=== PATIENT | female | born 1965 | race Caucasian/White ===

== ENCOUNTER 2018-03-21 13:05 | Inpatient (IN) | payer OTHER ==
[2018-03-21 13:49] LABS: ANION GAP 11 (8-16); BLOOD UREA NITROGEN 11 mg/dl (7-20); CALCIUM 9.1 mg/dl (8.4-10.2); CARBON DIOXIDE 22 mmol/L (21-31); CHLORIDE 111 mmol/L (97-110); CREATININE 0.61 mg/dl (0.44-1.00); GLUCOSE 97 mg/dl (70-220); SODIUM 140 mmol/L (135-144)
[2018-03-21] MEDS: ONDANSETRON (ODT) 4 MG TAB ODT ×2 (13:52→14:00)
[2018-03-21 14:05] LABS: TROPONIN-I 0.543 ng/ml (0.000-0.120)
[2018-03-21] MEDS: ASPIRIN 81 MG TAB PO (14:22)
[2018-03-21] MEDS ORDERED: ONDANSETRON 4 MG INJ IV ×2 (15:30→16:00)
[2018-03-21] MEDS ORDERED: ACETAMINOPHEN 325 MG TAB PO ×2 (15:30→16:00)
[2018-03-21] MEDS ORDERED: HYDROCODONE/APAP (5/325) TAB PO (16:00)
[2018-03-21] MEDS ORDERED: NACL 0.9% 3 ML SYG IV (16:00)
[2018-03-21 16:40] LABS: CHOL/HDL RATIO 5.5 RATIO; HDL CHOLESTEROL 36 mg/dl (37-92); LDL CHOLESTEROL,CALCULATED 146 mg/dl; TRIGLYCERIDES 94 mg/dl (0-149)
[2018-03-21 16:40] LABS: CHOLESTEROL 201 mg/dl (100-200)
[2018-03-21 16:59] LABS: FREE T4 (FREE THYROXINE) 1.37 ng/dl (0.64-1.79)
[2018-03-21 17:19] LABS: HEMOGLOBIN A1C 5.7 % (0-5.9)
[2018-03-21] MEDS: LORAZEPAM 0.5 MG TAB PO (17:34)
[2018-03-21 19:50] LABS: CREATINE KINASE 109 IU/L (23-200)
[2018-03-21 20:03] LABS: CK INDEX 2.8
[2018-03-21 20:06] LABS: TROPONIN-I 0.994 ng/ml (0.000-0.120)
[2018-03-21] MEDS: morphine 2 MG INJ IV (21:33)
[2018-03-21] MEDS: SOD CHLORIDE 0.9% 1,000 ML IV (23:20)
[2018-03-21] MEDS: ENOXAPARIN 80 MG/0.8 ML SYG SC (23:29)
[2018-03-22] MEDS: ASPIRIN (EC) 81 MG TAB PO (08:18)
[2018-03-22] MEDS: ENOXAPARIN 80 MG/0.8 ML SYG SC (08:19)
[2018-03-22 09:30] LABS: ADD MAN DIFF? NO
[2018-03-22 09:44] LABS: BASOPHILS % 0.2 % (0.0-2.0); EOSINOPHILS % 0.1 % (0.0-7.0); HEMATOCRIT 40.3 % (37.0-47.0); HEMOGLOBIN 13.6 g/dl (12.0-16.0); LYMPHOCYTES # 2.5 10^3/ul (0.8-2.9); LYMPHOCYTES % 13.3 % (15.0-51.0); MEAN CORPUSCULAR HEMOGLOBIN 30.4 pg (29.0-33.0); MEAN CORPUSCULAR HGB CONC 33.7 g/dl (32.0-37.0); MEAN PLATELET VOLUME 10.8 fl (7.4-10.4); MONOCYTES % 5.3 % (0.0-11.0); NEUTROPHIL # 15.1 10^3/ul (1.6-7.5); NEUTROPHILS % 80.3 % (39.0-77.0); PLATELET COUNT 251 10^3/UL (140-415); RED BLOOD COUNT 4.48 10^6/ul (4.20-5.40); RED CELL DISTRIBUTION WIDTH 12.9 % (11.5-14.5)
[2018-03-22 09:44] LABS: WHITE BLOOD COUNT 18.8 10^3/ul (4.8-10.8)
[2018-03-22 09:54] LABS: CREATINE KINASE 62 IU/L (23-200)
[2018-03-22 09:57] LABS: ALANINE AMINOTRANSFERASE 30 IU/L (13-69); ALBUMIN 3.4 g/dl (3.3-4.9); ALBUMIN/GLOBULIN RATIO 1.54; ALKALINE PHOSPHATASE 38 IU/L (42-121); ANION GAP 8 (8-16); ASPARTATE AMINO TRANSFERASE 16 IU/L (15-46); BILIRUBIN,INDIRECT 0.5 mg/dl (0-1.1); BILIRUBIN,TOTAL 0.5 mg/dl (0.2-1.3); BLOOD UREA NITROGEN 14 mg/dl (7-20); CARBON DIOXIDE 24 mmol/L (21-31); CHLORIDE 114 mmol/L (97-110); CREATININE 0.57 mg/dl (0.44-1.00); GLUCOSE 91 mg/dl (70-220); POTASSIUM 3.8 mmol/L (3.5-5.1); SODIUM 142 mmol/L (135-144); TOTAL PROTEIN 5.6 g/dl (6.1-8.1)
[2018-03-22 09:59] LABS: INR 1.01; PROTIME 13.4 Sec (11.9-14.9)
[2018-03-22 10:00] LABS: PARTIAL THROMBOPLASTIN TIME 43.4 Sec (25.0-35.0)
[2018-03-22 10:08] LABS: CK INDEX 2.6
[2018-03-22 10:09] LABS: TROPONIN-I 0.277 ng/ml (0.000-0.120)
[2018-03-22] MEDS ORDERED: HEPARIN 1000 UNITS/ML 10 ML INJ (10:23)
[2018-03-22] MEDS ORDERED: MIDAZOLAM 1 MG/ML 2 ML INJ (10:23)
[2018-03-22] MEDS ORDERED: FENTAnyl 50 MCG/ML VIAL (10:23)
[2018-03-22] MEDS ORDERED: VERAPAMIL 5 MG INJ (10:23)
[2018-03-22 10:24] LABS: MAGNESIUM 1.9 mg/dl (1.7-2.5)
[2018-03-22] MEDS ORDERED: LIDOCAINE 1% (MDV) 10 ML INJ (10:24)
[2018-03-22] MEDS ORDERED: NITROGLYCERIN (IC) 100 MCG/ML INJ (10:24)
[2018-03-22] MEDS: SOD CHLORIDE 0.9% 1,000 ML IV (14:51)
[2018-03-22] MEDS: ATORVASTATIN 20 MG TAB PO (15:36)
== END 2018-03-22 16:05 | disposition home or self-care (01) | DRG 281 ==
LOC: E/R 13:05 → MS4 15:18
PROC: 4A023N7 Measurement of Cardiac Sampling and Pressure, Left Heart, Percutaneous Approach (ICD-10-PCS; principal; 2018-03-22 10:30)
PROC: B211YZZ Fluoroscopy of Multiple Coronary Arteries using Other Contrast (ICD-10-PCS; 2018-03-22 10:30)
PROC: B215YZZ Fluoroscopy of Left Heart using Other Contrast (ICD-10-PCS; 2018-03-22 10:30)
DX: I21.A1 Myocardial infarction type 2 (principal); I16.1 Hypertensive emergency; E78.5 Hyperlipidemia, unspecified; M25.812 Other specified joint disorders, left shoulder
CPT/HCPCS: 71045; 80048; 80053; 80061; 82550; 82553; 83036; 83735; 84439; 84443; 84484; 85025; 85610; 85730; 93005; 93306; 93458; 99285-25